=== PATIENT | female | born 2000 | race Caucasian/White ===

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

== ENCOUNTER 2020-05-04 21:40 | Emergency (ER) | payer MEDICAID ==
[~2020-05-04] VITALS: Ht 175.3 cm; Wt 67.0 kg
--- NOTE | 2020-05-04 21:57 | NUR ---
pt here for headache, sore throat and dizziness starting today. pt states she has a hard time walking at home and had to use wall for balance. erp at bedside
[2020-05-04] MEDS ORDERED: ONDANSETRON ODT 4 MG ONE (22:12)
[2020-05-04] MEDS ORDERED: ACETAMINOPHEN 500 MG TABLET ONE (22:12)
--- NOTE | 2020-05-04 22:18 | NUR ---
XRAY AT BEDSIDE, EKG TO BE DONE AFTER. PT STATES NAUSEA HAS SUBSIDED
[2020-05-04] MEDS ORDERED: ACETAMINOPHEN 500 MG TABLET PO ONE (22:30)
[2020-05-04] MEDS ORDERED: ONDANSETRON ODT 4 MG PO ONE (22:30)
[2020-05-04] MEDS ORDERED: ACETAMINOPHEN 325 MG TABLET PO ONE (22:30)
[2020-05-04 23:13] VITALS: BP 96/51
--- NOTE | 2020-05-04 23:40 | NUR ---
pt given dc instructions, registration at bedside
== END 2020-05-04 23:55 | disposition home or self-care (01) ==
LOC: ED 22:10
DX: J06.9 Acute upper respiratory infection, unspecified (principal); Z20.822 Contact with and (suspected) exposure to COVID-19; B34.9 Viral infection, unspecified; J02.9 Acute pharyngitis, unspecified; R11.2 Nausea with vomiting, unspecified; R51.9 Headache, unspecified; R42 Dizziness and giddiness; R05 Cough; R00.0 Tachycardia, unspecified; R06.02 Shortness of breath
CPT/HCPCS: 71045; 87081; 87635; 87880; 93005; 99285; Q0162